=== PATIENT | female | born 2000 | race Two or more races ===

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

== ENCOUNTER 2023-05-16 12:35 | Emergency (ER) | payer BC, MEDICAID ==
[~2023-05-16] VITALS: Ht 154.9 cm; Wt 72.0 kg
[2023-05-16 13:00] VITALS: O2SAT 98
[2023-05-16] MEDS ORDERED: BACITRACIN ZINC OINT UDPKT TOP ONE (14:00)
[2023-05-16] MEDS ORDERED: LIDOCAINE HCL/PF 1% 10 MG/ML 5ML VIAL INFIL ONE (14:00)
[2023-05-16 15:46] VITALS: BP 121/75; PULSE 72; RESP 19; TEMP 97.9
== END 2023-05-16 15:48 | disposition home or self-care (01) ==
LOC: ER 13:26
DX: S91.112A Laceration without foreign body of left great toe without damage to nail, initial encounter (principal); J45.909 Unspecified asthma, uncomplicated; W25.XXXA Contact with sharp glass, initial encounter; Y93.89 Activity, other specified; Y92.89 Other specified places as the place of occurrence of the external cause; Y99.8 Other external cause status
CPT/HCPCS: 12002; 99282; J3490; Z7610 ×2

== ENCOUNTER 2023-07-22 08:31 | Emergency (ER) | payer MEDICAID, OTHER ==
[~2023-07-22] VITALS: Ht 157.5 cm; Wt 54.0 kg
[2023-07-22 08:40] VITALS: BP 110/65; O2SAT 99
[2023-07-22 10:18] VITALS: PULSE 54; RESP 18; TEMP 98
== END 2023-07-22 10:19 | disposition home or self-care (01) ==
LOC: ER 09:25
DX: S91.112D Laceration without foreign body of left great toe without damage to nail, subsequent encounter (principal); J45.909 Unspecified asthma, uncomplicated; X58.XXXD Exposure to other specified factors, subsequent encounter
CPT/HCPCS: 99281